=== PATIENT | female | born 1950 | race Caucasian/White ===

== ENCOUNTER 2017-04-10 20:53 | Emergency (ER) | payer MEDICARE, OTHER ==
[2017-04-10 21:28] VITALS: BP 138/79; PULSE 71; RESP 18; TEMP 97.7
[2017-04-10] MEDS ORDERED: PROPARACAINE 0.5% OPHTH DROPS 15 ML BTL BOTH EYES STA (22:01)
[2017-04-10] MEDS ORDERED: ERYTHROMYCIN 5 MG/GM OPHTH OINT 3.5 GM TUBE BOTH EYES STA (22:01)
--- NOTE | 2017-04-10 22:23 | ED ---
Eye Problem HPI - General Chief complaint: Eye Problems Stated complaint: left eye injury Time Seen by Provider: 04/10/17 21:45 Source: patient Mode of arrival: ambulatory Limitations: no limitations - History of Present Illness Initial comments: This is a 66-year-old female chief complaint of left eye pain. Patient reports that she was working with her hands excellently poked herself in the eye with her fingers. Patient reports that she thinks that her nail cut her upper eyelid and the cornea. Patient states that she's had no changes in vision but her eyes continue to swell and water due to the pain. Patient states that she' s had a history of contacts. She does wear glasses. Patient reports that she patient shortly after he should've this doesn't get infected. - Related Data Home Medications Medication Instructions Recorded Confirmed Levothyroxine Sodium [Synthroid] 125 mcg PO DAILY 04/10/17 04/10/17 Lisinopril [Zestril] 10 mg PO DAILY 04/10/17 04/10/17 Allergies Allergy/AdvReac Type Severity Reaction Status Date / Time No Known Allergies Allergy Verified 04/10/17 21:28 Review of Systems ROS Statement: Those systems with pertinent positive or pertinent negative responses have been documented in the HPI. ROS Other: All systems not noted in ROS Statement are negative. Past Medical History Past Medical History: Hypertension History of Any Multi-Drug Resistant Organisms: None Reported Past Surgical History: Hysterectomy Past Psychological History: No Psychological Hx Reported Smoking Status: Never smoker Past Alcohol Use History: Occasional Past Drug Use History: None Reported General Exam - General Exam Comments Initial Comments: Pleasant 66-year-old female. No acute distress. Limitations: no limitations General appearance: alert, in no apparent distress Head exam: Present: atraumatic, normocephalic, normal inspection Eye exam: Present: normal appearance, PERRL, EOMI, conjunctival injection (Left eye conjunctival injection. Evidence of a significant corneal abrasion at the 7 o'clock position. Patient was given 4 seen on exam and cyanosis noted.). Absent: scleral icterus, periorbital swelling ENT exam: Present: normal exam, mucous membranes moist Neck exam: Present: normal inspection. Absent: tenderness, meningismus, lymphadenopathy Respiratory exam: Present: normal lung sounds bilaterally. Absent: respiratory distress, wheezes, rales, rhonchi, stridor Cardiovascular Exam: Present: regular rate, normal rhythm, normal heart sounds. Absent: systolic murmur, diastolic murmur, rubs, gallop, clicks GI/Abdominal exam: Present: soft, normal bowel sounds. Absent: distended, tenderness, guarding, rebound, rigid Extremities exam: Present: normal inspection, full ROM, normal capillary refill. Absent: tenderness, pedal edema, joint swelling, calf tenderness Back exam: Present: normal inspection Neurological exam: Present: alert, oriented X3, CN II-XII intact Psychiatric exam: Present: normal affect, normal mood Skin exam: Present: warm, dry, intact, normal color. Absent: rash Course Vital Signs 04/10/17 21:25 Temperature 97.7 F Pulse Rate 71 Respiratory 18 Rate Blood Pressure 138/79 O2 Sat by Pulse 95 Oximetry Medical Decision Making - Medical Decision Making 66-year-old female. No acute distress evidence of significant corneal abrasion on fluorescein eye exam. Patient I will with was flipped no evidence of abrasion or foreign body within the eye. Patient will be started on erythromycin ointment drops. Discussed close follow-up with front desk clerk or persist. Patient understands treatment plan will comply. Return parameters were discussed. Disposition Clinical Impression: Corneal abrasion Disposition: HOME SELF-CARE Condition: Good Instructions: Corneal Abrasion (ED) Additional Instructions: Apply the eye ointment in the eye every 4 hours for the next 2 days. Patient advised to 3 times a day afterwards. Patient advised to follow-up with front desk clerk if symptoms continue to persist. Return to the emergency department if any alarming signs or symptoms occur. Referrals: Jael Santa MD [Primary Care Provider] - 1-2 days Matt Calderon MD [STAFF PHYSICIAN] - 1-2 days Time of Disposition: 22:22
== END 2017-04-10 22:40 | disposition home or self-care (01) ==
LOC: EC 20:53
DX: S05.02XA Injury of conjunctiva and corneal abrasion without foreign body, left eye, initial encounter (principal); I10 Essential (primary) hypertension; Z79.899 Other long term (current) drug therapy; X58.XXXA Exposure to other specified factors, initial encounter
CPT/HCPCS: 99283

== ENCOUNTER 2017-10-10 06:51 | Day surgery (SDC) | payer MEDICARE, OTHER ==
[2017-10-02 12:52] VITALS: BMI 35.2
[~2017-10-10 06:51] MED LIST: LACTATED RINGERS 1,000 ML IV SCH; LIDOCAINE 1% 20 ML VIAL (10MG/ML) FOR IV START INTRADERMA PRN; MOXIFLOXACIN HCL 0.5% DROPS 3 ML BTL OP ONE; TETRACAINE 0.5% OPHTH (PF) DROPS 4 ML BTL OP ONE; TIMOLOL 0.5% OPHTH SOLN (PF) 0.2 ML DROPERETTE OP ONE
[2017-10-10 07:12] VITALS: TEMP 98.7
[2017-10-10] MEDS: CYCLOPENTOLATE 1% OPHTH SOLN 2 ML BTL OP ONE ×3 (07:17→07:34)
[2017-10-10] MEDS: PHENYLEPHRINE 2.5% OPHTH DRP 2ML OP NR ×2 (07:22→07:30)
[2017-10-10 07:43] LABS: Glucose,Whole Blood 91 mg/dL (75-99)
[2017-10-10] MEDS ORDERED: MIDAZOLAM 2 MG/2 ML VIAL ONE (08:46)
[2017-10-10] MEDS ORDERED: fentaNYL (PF) 50 MCG/ML 2 ML AMP ONE (08:46)
[2017-10-10] MEDS ORDERED: EPINEPHrine (PF) 0.3 ML in BALANCED SALT IRRIG SOLN COMB2 500 ML IRRIGATION ONE (08:53)
[2017-10-10] MEDS ORDERED: HYALURONATE SODIUM INTRAOCULAR 1 EACH SYRINGE (12MG/ML) INTRAOCULA ONE (08:55)
[2017-10-10] MEDS ORDERED: BALANCED SALT IRRIG SOLN COMB2 15 ML IRRIG.SOLN IRRIGATION ONE (08:55)
[2017-10-10] MEDS ORDERED: MOXIFLOXACIN HCL 0.5% DROPS 3 ML BTL LEFT EYE ONE (08:57)
[2017-10-10] MEDS ORDERED: LIDOCAINE 1% (PF) 10MG/ML VIAL INTRAARTIC ONE (08:58)
--- NOTE | 2017-10-10 09:07 | P.OP ---
Date of Procedure: 10/10/17 Preoperative Diagnosis: NS Postoperative Diagnosis: same Procedure(s) Performed: PIOL, OS Implants: PCB00 19.50 Anesthesia: MAC Surgeon: Matt Calderon Estimated Blood Loss (ml): 0 Pathology: none sent Condition: stable Disposition: same day Indications for Procedure: blurry vision Description of Procedure: No complications
[2017-10-10 09:11] VITALS: RESP 16
[2017-10-10 09:23] VITALS: BP 126/89; PULSE 60
--- NOTE | 2017-10-10 09:33 | OP ---
OPERATIVE REPORT DATE OF SERVICE: 10/10/2017 PREOPERATIVE DIAGNOSIS:: Nuclear sclerosis. POSTOPERATIVE DIAGNOSIS:: Same. OPERATION:: Clear cornea phacoemulsification of cataract left eye. ESTIMATED BLOOD LOSS:: Zero. SPECIMEN TAKEN:: None. NARRATIVE:: After obtaining the appropriate consent, the patient was brought to the Operating Room where the patient was placed under cardiac monitoring and prepped and draped in the usual sterile manner. At the 5 o'clock position a 15 degree super sharp blade was used to create a paracentesis followed by instillation of 1% Xylocaine MPF 50:50 mix with BSS into the anterior chamber. This was followed by Amvisc to stabilize the anterior chamber. At the 3 o'clock position a self-sealing corneal flap incision was created using 2.8 mm keyla keratome. A cystatome was used to initiate a continuous tear capsulorrhexis which was completed with the Utrata forceps. A Binkhorst cannula was used to hydrodissect the lens nucleus followed by hydrodelineation. Phacoemulsification of the lens was performed utilizing phacochop in 12.85 seconds at 14% power. The remaining cortical material was removed using the irrigation aspiration mode followed by additional 1% Xylocaine MPF into the anterior chamber followed by viscoelastic to stabilize the capsular bag. An JOSÉ LUIS PCB 0019.0 posterior chamber lens was placed into the capsular bag without difficulty. The remaining viscoelastic material was removed from the anterior chamber with the irrigation/aspiration. Balanced salt solution was used to normalize the intraocular pressure. The incision was checked for watertight integrity. The patient then received two drops of 0.5% timolol followed by two drops Vigamox, was lightly patched and shielded in the usual manner. There were no complications from the procedure. The patient tolerated the procedure well and was returned to recovery in good condition. MMODL / IJN: [id number] /
== END 2017-10-10 09:40 | disposition home or self-care (01) ==
LOC: OR 06:51
PROVIDERS: ATTEND Ophthalmology
DX: H25.13 Age-related nuclear cataract, bilateral (principal); I10 Essential (primary) hypertension; E07.9 Disorder of thyroid, unspecified; K21.9 Gastro-esophageal reflux disease without esophagitis; H04.129 Dry eye syndrome of unspecified lacrimal gland; H00.023 Hordeolum internum right eye, unspecified eyelid; H00.026 Hordeolum internum left eye, unspecified eyelid; H52.12 Myopia, left eye; H52.223 Regular astigmatism, bilateral; H52.4 Presbyopia; H18.52 Epithelial (juvenile) corneal dystrophy; Z79.899 Other long term (current) drug therapy; Z90.710 Acquired absence of both cervix and uterus
CPT/HCPCS: 66984; C1780; J2250; J0171; J3010; J2001